=== PATIENT | female | born 1970 | race Hispanic/Latino ===

== ENCOUNTER 2024-10-27 04:05 | Emergency (ER) | payer BC, OTHER ==
--- OUTSIDE RECORDS SUMMARY | 2024-10-27 04:09 | XMS REPORT | Clinical Summary ---
Author Name Unknown Organization [facility] Address [address] [place] [address] Care Team Providers Care Lost Charge Card Clerk Name Role Phone Mary Jane Billingsley MD Primary Care Provider [phone] Social History Tobacco Use Types Packs/Day Years Used Date Smoking Tobacco: Never Assessed Comments Unknown Sex and Gender Information Value Date Recorded Sex Assigned at Not on file Legal Sex Female 10:32 AM CDT Gender Identity Not on file Sexual Orientation Not on file Plan of Treatment Health Maintenance Due Date Last Done Comments Pneumococcal Vaccine: 50+ Ye ars (1 of - PCV) 2018 COVID-19 Vaccine (2023-2 5 season) 2024 Influenza Vaccine (#1) 2024 Pneumococcal Vaccine Aged Out No long er eligible based on patient's age to complete this topic Insurance [facility] [place] PPO POS [facility] [place] POS Care Teams Lost Charge Card Clerk Relationship Specialty Start [place] [address] [place] [id number] [email or web address] PCP - General Hematology and Oncology 04/09/21
[2024-10-27] MEDS ORDERED: ONDANSETRON 4 MG/2 ML VIAL ONE (05:02)
[2024-10-27] MEDS ORDERED: NA CHLORIDE 0.9% 1,000 ML ONE (05:02)
[2024-10-27 05:14] LABS: Absolute Lymphocytes (CBC) 0.2 K/uL (0.7-4.9); Absolute Monocytes 0.3 K/uL (0.1-1.3); Basophils % 0.1 % (0-1.3); Eosinophils % 0.7 % (0-4.4); Hematocrit 42.9 % (36.0-45.0); Hemoglobin 14.7 g/dL (12.0-15.0); Lymphocytes % 2.7 % (15.3-44.8); MCH 32.4 pg (27.0-35.0); MCHC 34.3 g/dL (32.0-36.0); MCV 94.5 fL (80-100); MPV 7.5 fL (7.6-11.3); Monocytes % 4.3 % (3.3-12.3); Neutrophils % 92.2 % (41.7-73.7); Platelets 180 thou/uL (152-406); RBC Red Blood Cell Count 4.54 M/uL (3.86-4.86); Red Cell Distribution Width 14.5 % (12.1-15.2)
[2024-10-27 05:18] LABS: Specific Gravity 1.026 (1.005-1.030); Sqamous Epithelial <5 /HPF (None Seen); Urine Bacteria <20 /HPF (<20); Urine Bilirubin NEGATIVE (Negative); Urine Blood Negative (Negative); Urine Clarity Turbid (Clear); Urine Color Light-Yellow (Yellow); Urine Crystals Unidentified Few /HPF (None Seen); Urine Culture Reflex Order NOT NEEDED; Urine Glucose NEGATIVE (Negative); Urine Ketones 1+ (Negative); Urine Microscopic Reflex YN ORDER UMIC; Urine Mucus Slight /HPF (None Seen); Urine Nitrite NEGATIVE (Negative); Urine Protein NEGATIVE (Negative); Urine RBC <5 /HPF (None Seen); Urine Urobilinogen Normal (Normal); Urine WBC <5 /HPF (<5); Urine pH 5.5 (5.0-7.0)
[2024-10-27] MEDS ORDERED: KETOROLAC 30 MG/ML INJ ONE (05:25)
[2024-10-27] MEDS ORDERED: ACETAMINOPHEN 500 MG TAB ONE (05:25)
[2024-10-27] MEDS ORDERED: DIPHENHYDRAMINE 50 MG/ML VIAL ONE (05:26)
[2024-10-27] MEDS ORDERED: METOCLOPRAMIDE 10 MG/2mL INJ ONE (05:26)
[2024-10-27 05:37] LABS: Albumin 3.5 g/dL (3.4-5.0); Albumin/Globulin Ratio 0.9 (1.1-1.8); Anion Gap 6.8 mEq/L (5.0-15.0); Bilirubin Total 0.7 mg/dL (0.2-1.0); Potassium 3.8 mEq/L (3.5-5.1); Protein, Total 7.5 g/dL (6.4-8.2)
--- NOTE | 2024-10-27 06:51 | EDPHYS ---
Physician Documentation [facility] Name: Neva Hatfield Age: 54 yrs Sex: Female : 1970 Arrival Date: 10/27/2024 Time: 04:05 Bed 3 Private MD: ED Physician Ross Wallace HPI: 10/27 04:24 This 54 yrs old Female presents to ER via Unassigned with complaints of sp4 Nausea/Vomiting, Abdominal Pain, Headache. 20:45 54-year-old female presents with acute onset profuse vomiting and abdominal sp4 discomfort also had. Historical: - Allergies: 04:59 NKDA; ay - Immunization history:: Client reports receiving the 2nd dose of the Covid vaccine, Flu vaccine is up to date. - Infectious Disease History:: Denies. - Social history:: Smoking status: Patient denies any tobacco usage or history of. - Family history:: not pertinent. ROS: 20:45 Constitutional: Positive for nausea vomiting headache and abdominal discomfort Eyes: sp4 Negative for injury, pain, redness, and discharge, ENT: Negative for injury, pain, and discharge, 20:45 All other systems are negative, Exam: 20:45 Constitutional: This is a well developed, well nourished patient who is awake, alert, sp4 and in no acute distress. Head/Face: Normocephalic, atraumatic. Eyes: Pupils equal round and reactive to light, extra-ocular motions intact. Lids and lashes normal. Conjunctiva and sclera are not injected. Cornea within normal limits. Periorbital areas with no swelling, redness, or edema. ENT: Nares patent. No nasal discharge, no septal abnormalities noted. Tympanic membranes are normal and external auditory canals are clear. Oropharynx with no redness, swelling, or masses, exudates, or evidence of obstruction, uvula midline. Mucous membranes moist. Neck: Trachea midline, no thyromegaly or masses palpated, and no cervical lymphadenopathy. Supple, full range of motion without nuchal rigidity, or vertebral point tenderness. Chest/axilla: Normal chest wall appearance and motion. Nontender with no deformity. No lesions are appreciated. Cardiovascular: Regular rate and rhythm with a normal S1 and S2. No gallops, murmurs, or rubs. Normal PMI, no JVD. No pulse deficits. Respiratory: Lungs have equal breath sounds bilaterally, clear to auscultation and percussion. No rales, rhonchi or wheezes noted. No increased work of breathing, no retractions or nasal flaring. Abdomen/GI: Soft, with normal bowel sounds. No distension or tympany. No guarding or rebound. No evidence of tenderness throughout. No signs of peritonitis. Back: No spinal tenderness. No costovertebral tenderness. Skin: Warm, dry with normal turgor. Normal color with no rashes, no lesions, and no evidence of cellulitis. MS/ Extremity: Pulses equal, no cyanosis. Neurovascular intact. Full, normal range of motion. Neuro: Awake and alert, GCS 15, oriented to person, place, time, and situation. Cranial nerves II-XII grossly intact. Motor strength 5/5 in all extremities. Sensory grossly intact. Psych: Awake, alert, with orientation to person, place and time. Behavior, mood, and affect are within normal limits Vital Signs: 04:53 BP 139 / 89; Pulse 107; Resp 17; Temp 98.6; Pulse Ox 98% on R/A; ay 05:05 BP 139 / 89; Pulse 107; Resp 17; Temp 98.6; Pulse Ox 98% on R/A; ay 05:12 Weight 66.68 kg; Height 4 ft. 9 in. ; al5 06:30 BP 127 / 77; Pulse 102; Resp 16; Pulse Ox 95% on R/A; ay 05:12 Body Mass Index 31.81 (66.68 kg, 144.78 cm) al5 Иван Coma Score: 05:06 Eye Response: spontaneous(4). Motor Response: obeys commands(6). Verbal Response: ay oriented(5). Total: 15. 20:45 Eye Response: spontaneous(4). Motor Response: obeys commands(6). Verbal Response: sp4 oriented(5). Total: 15. MDM: 04:24 Medical Screening Exam initiated sp4 20:45 Differential diagnosis: Nonspecific abd pain, gastritis, pancreatitis, viral sp4 gastroenteritis, gastroenteritis. Data reviewed: vital signs, nurses notes, old medical records, lab test result(s). Consideration of Admission/Observation Escalation of care including admission/observation considered. ED course: Patient's has improved significantly and she tolerated p.o. intake. Patient's abdomen is nontender. CT at this time not indicated . Stable for discharge home.. 10/27 04:24 Order name: CBC with Diff sp4 10/27 04:24 Order name: CMP; Complete Time: 06:44 sp4 10/27 04:24 Order name: Lipase; Complete Time: 06:44 sp4 10/27 04:24 Order name: Urinalysis w/ reflexes; Complete Time: 06:44 sp4 10/27 05:48 Order name: CBC Smear Scan EDMS 10/27 04:24 Order name: IV Saline Lock; Complete Time: 05:11 sp4 10/27 04:24 Order name: Labs collected and sent; Complete Time: 05:11 sp4 Administered Medications: 05:11 Drug: Ondansetron IVP 8 mg IVP once; over 2 minutes Route: IVP; Site: right antecubital;al5 06:45 Follow up: Response: No adverse reaction ay 05:11 Drug: NS 0.9% IV 1000 ml IV at 1 bolus Per protocol; to be given as a bolus over 60 al5 minutes Route: IV; Rate: 1 bolus; Site: right antecubital; 05:45 Drug: diphenhydrAMINE IVP 25 mg IVP once Route: IVP; Site: right antecubital; ay 06:44 Follow up: Response: No adverse reaction ay 05:45 Drug: metoCLOPramide IVP 10 mg IVP once; over 1 to 2 minutes Route: IVP; Site: right ay antecubital; 06:44 Follow up: Response: No adverse reaction ay 05:45 Drug: Acetaminophen PO 1000 mg PO once Route: PO; ay 06:44 Follow up: Response: No adverse reaction ay 05:46 Drug: Ketorolac IVP 15 mg IVP once Route: IVP; Site: right antecubital; ay 06:44 Follow up: Response: No adverse reaction ay Disposition Summary: 10/27/24 06:50 Discharge Ordered Notes: Location: Home sp4 Problem: new sp4 Symptoms: have improved sp4 Condition: Stable sp4 Diagnosis - Acute viral gastroenteritis, acute vomiting sp4 Followup: sp4 - With: Private Physician - When: 7 - 10 days - Reason: Recheck today's complaints Discharge Instructions: - Discharge Summary Sheet sp4 - Viral Gastroenteritis, Adult, [id number] sp4 Forms: - Work release form ss - Patient Portal Instructions sp4 Prescriptions: - Reglan 10 mg Oral tablet - take 1 tablet ORAL route every 6 hours PRN severe nausea and vomiting; 30 sp4 tablet; Refills: 0, Product Selection Permitted - dicyclomine 20 mg Oral tablet - take 1 tablet ORAL route 4 times per day PRN abdominal pain; 30 tablet; sp4 Refills: 0, Product Selection Permitted - ondansetron 8 mg Oral Tablet,disintegrating - take 1 tablet ORAL route every 8 hours PRN nausea; 30 tablet; Refills: 0, sp4 Product Selection Permitted Signatures: Dispatcher [employer] EDRoss Juarez MD MD sp4 Marcelina Abraham RN RN al5 Missy Pereira RN RN ay
--- NOTE | 2024-10-27 06:51 | ER ---
Nurse's Notes [facility] Name: Neva Hatfield Age: 54 yrs Sex: Female : 1970 Arrival Date: 10/27/2024 Time: 04:05 Bed 3 Private MD: Diagnosis: Acute viral gastroenteritis, acute vomiting Presentation: 10/27 04:53 Chief complaint: Patient states: Pt stated she has been vomiting and nausea since ay midnight. C/O chills, denies fever, CP, and SOB. Coronavirus screen: Client denies travel out of the [place] in the last 14 days. Ebola Screen: No symptoms or risks identified at this time. Initial Sepsis Screen: Does the patient meet any 2 criteria? No. Patient's initial sepsis screen is negative. Does the patient have a suspected source of infection? No. Patient's initial sepsis screen is negative. Risk Assessment: Do you want to hurt yourself or someone else? Patient reports no desire to harm self or others. Note Pt alert and oriented x4, no distress noted. Onset of symptoms was October 27, 2024 at 00:00. 04:53 Method Of Arrival: Ambulatory ay 04:53 Acuity: SUHA 3 ay Triage Assessment: 04:59 General: Appears in no apparent distress. uncomfortable, Behavior is calm, cooperative. ay Pain: Complains of pain in abdomen Pain currently is 7 out of 10 on a pain scale. Quality of pain is described as crampy, Is intermittent. EENT: No signs and/or symptoms were reported regarding the EENT system. Neuro: Level of Consciousness is awake, alert, obeys commands, Oriented to person, place, time, situation, Speech is normal. Cardiovascular: Capillary refill < 3 seconds. Respiratory: Airway is patent Respiratory effort is even, unlabored, Respiratory pattern is regular, symmetrical. GI: Reports cramping, nausea, vomiting. : No signs and/or symptoms were reported regarding the genitourinary system. Derm: No signs and/or symptoms reported regarding the dermatologic system. Musculoskeletal: No signs and/or symptoms reported regarding the musculoskeletal system. Historical: - Allergies: 04:59 NKDA; ay - Immunization history:: Client reports receiving the 2nd dose of the Covid vaccine, Flu vaccine is up to date. - Infectious Disease History:: Denies. - Social history:: Smoking status: Patient denies any tobacco usage or history of. - Family history:: not pertinent. Screenin:06 [facility] ED Fall Risk Assessment (Adult) History of falling in the last 3 months, ay including since admission No falls in past 3 months (0 pts) Confusion or Disorientation No (0 pts) Intoxicated or Sedated No (0 pts) Impaired Gait No (0 pts) Mobility Assist Device Used No (0 pt) Altered Elimination No (0 pt) Score/Fall Risk Level 0 - 2 = Low Risk Oriented to surroundings, Maintained a safe environment, Educated pt \T\ family on fall prevention, incl call for assistance when getting out of bed. Abuse screen: Denies threats or abuse. Nutritional screening: No deficits noted. Tuberculosis screening: No symptoms or risk factors identified. Assessment: 05:06 General: See triage assessments. GI: Reports cramping, nausea, vomiting. ay 05:09 GI:. ay Vital Signs: 04:53 BP 139 / 89; Pulse 107; Resp 17; Temp 98.6; Pulse Ox 98% on R/A; ay 05:05 BP 139 / 89; Pulse 107; Resp 17; Temp 98.6; Pulse Ox 98% on R/A; ay 05:12 Weight 66.68 kg; Height 4 ft. 9 in. ; al5 06:30 BP 127 / 77; Pulse 102; Resp 16; Pulse Ox 95% on R/A; ay 05:12 Body Mass Index 31.81 (66.68 kg, 144.78 cm) al5 [place] Coma Score: 05:06 Eye Response: spontaneous(4). Motor Response: obeys commands(6). Verbal Response: ay oriented(5). Total: 15. 20:45 Eye Response: spontaneous(4). Motor Response: obeys commands(6). Verbal Response: sp4 oriented(5). Total: 15. ED Course: 04:10 Patient arrived in ED. gm2 04:24 Ross Wallace MD is Attending Physician. sp4 04:49 Marcelina Abraham RN is Primary Nurse. al5 04:59 Triage completed. ay 04:59 Arm band placed on right wrist. ay 05:06 Patient has correct armband on for positive identification. Bed in low position. Call ay light in reach. Side rails up X2. 05:09 Inserted saline lock: 20 gauge in right antecubital area, using aseptic technique. ay 07:12 IV discontinued, intact, bleeding controlled, No redness/swelling at site. Pressure ko1 dressing applied. 07:13 Provided Education on: discharge. ko1 07:13 No provider procedures requiring assistance completed. ko1 Administered Medications: 05:11 Drug: Ondansetron IVP 8 mg IVP once; over 2 minutes Route: IVP; Site: right antecubital;al5 06:45 Follow up: Response: No adverse reaction ay 05:11 Drug: NS 0.9% IV 1000 ml IV at 1 bolus Per protocol; to be given as a bolus over 60 al5 minutes Route: IV; Rate: 1 bolus; Site: right antecubital; 05:45 Drug: diphenhydrAMINE IVP 25 mg IVP once Route: IVP; Site: right antecubital; ay 06:44 Follow up: Response: No adverse reaction ay 05:45 Drug: metoCLOPramide IVP 10 mg IVP once; over 1 to 2 minutes Route: IVP; Site: right ay antecubital; 06:44 Follow up: Response: No adverse reaction ay 05:45 Drug: Acetaminophen PO 1000 mg PO once Route: PO; ay 06:44 Follow up: Response: No adverse reaction ay 05:46 Drug: Ketorolac IVP 15 mg IVP once Route: IVP; Site: right antecubital; ay 06:44 Follow up: Response: No adverse reaction ay Medication: 07:13 VIS not applicable for this client. ko1 Outcome: 06:50 Discharge ordered by . viral 07:12 Discharged to home ambulatory, ko1 07:12 Condition: stable 07:12 Discharge instructions given to patient, Instructed on discharge instructions, follow up and referral plans. medication usage, Demonstrated understanding of instructions, follow-up care, medications, Prescriptions given X 3, 07:14 Patient left the ED. ko1 Signatures: Chichi Goldstein RN RN ko1 Ross Wallace MD MD sp4 Nataliia Rosenberg gm2 Marcelina Abraham RN RN al5 Missy Pereira RN RN ay
[2024-10-27 08:14] LABS: Blood Morphology Comment NOT SEEN (NOT SEEN); Platelet Estimate ADEQ; Platelets Clumped FEW; White Blood Cell Scan OK (OK)
[2024-10-28 02:57] VITALS: TEMP 98.6
[2024-10-28 03:01] VITALS: BP 127/77; O2SAT 95
== END 2024-10-27 07:14 | disposition home or self-care (01) ==
LOC: ER 04:05
DX: A08.39 Other viral enteritis (principal); R11.10 Vomiting, unspecified
CPT/HCPCS: 85025; 81001; 36415; 83690; 80053; J2765; J1200; J2405; J7030; 96374; 96375; 99284